=== PATIENT | female | born 1985 | race Caucasian/White ===

== ENCOUNTER → 2019-05-01 17:05 | Outpatient (CLI) | payer OTHER, SELFPAY ==
[2019-05-01 13:55] VITALS: BMI 29.7
[2019-05-01 19:46] LABS: Chlamydia Trachomatis by PCR Negative (Negative); Neisserai gonorrhoeae by PCR Negative (Negative); Probe Check PASS; Sample Adequacy Control PASS; Specimen Processing Control PASS
== END ==
PROVIDERS: Referring Provider Obstetrics & Gynecology; Visit Provider Obstetrics & Gynecology
DX: O09.90 Supervision of high risk pregnancy, unspecified, unspecified trimester (principal); Z3A.00 Weeks of gestation of pregnancy not specified
CPT/HCPCS: 87086; 87491; 87591

== ENCOUNTER 2019-06-17 08:02 | Emergency (ER) | payer OTHER, SELFPAY ==
[2019-05-29 16:44] VITALS: BMI 29.7
[2019-06-17 08:04] VITALS: BP 136/77; PULSE 80; RESP 16; TEMP 36.7; O2SAT 98; BMI 30.3
--- NOTE | 2019-06-17 08:16 | US_ITS ---
STUDY: SECOND AND THIRD TRIMESTER OBSTETRICAL ULTRASOUND REASON FOR EXAM: Female, 34 years old BLEEDING LMP: March 02, 2019. TECHNIQUE: Transabdominal and Transvaginal TECHNICAL QUALITY: Adequate. PRIOR ULTRASOUND: None. FINDINGS: There is a single intrauterine fetus. The fetus is in a cephalic presentation. There is demonstrated cardiac activity with a heart rate of 150 bpm. There is a normal amniotic fluid volume. The largest amniotic fluid pocket measures 3.2 cm x 3 cm. The amniotic fluid index (SHANNAN) is within normal limits. The placenta is anterior in location and is not low lying. The tip of the placenta is at 2 cm from the cervical os. There are Grade 0 placental changes. The cervix measures 3.5 in length. There is a 1.8 cm x 1.6 cm x 1.4 cm soft tissue density within the cervical os. This may represent a blood clot. The bilateral adnexal regions are normal. BIOMETRY: BPD: 3.18 cm: 16 weeks, 0 days HC: 11.64 cm: 15 weeks, 6 days AC: 9.59 cm: 15 weeks, 5 days FL: 1.85 cm: 15 weeks, 4 days CI: 84% FL/BPD: 58% FL/HC: FL/AC: 19% HC/AC: 1.21 age by current US: 15 weeks, 6 days. BOBBI by current US: December 03, 2019. Estimated weight: 130 grams, +/- 19 grams, 62 %. Age by LMP: 15 weeks, 2 days. BOBBI by LMP: December 07, 2019. US/OB Limited With Biometrics IMPRESSION: Single live intrauterine gestation with a mean gestational age of 15 weeks and 6 days. A 1.8 cm x 1.6 cm x 1.4 cm soft tissue density is seen within the cervical os. This may represent a blood clot. Electronically Signed: Brendan Kruse, at 10:03 EST , Service support ,
--- NOTE | 2019-06-17 08:24 | ED.DCSUM_ITS ---
- ER Visit Summary Date of Service: 06/17/19 Chief Complaint: Vaginal bleeding History of Present Illness: The patient is a 34 F who presents with vaginal bleeding that began today. Patient states she woke up and was having some cramping and bleeding. Patient states that the second time she went to the [facility] she does noted some brown discharge. Patient states she has some mild pain in her back currently. Patient denies any discharge or leakage of fluids. Patient denies any dysuria or hematuria. Patient is 5 para 3 with 1 spontaneous miscarriage. Patient is approximately 15 weeks . Physical Examination: Vital signs are stable. Patient is afebrile. Patient is in no acute distress. Oral mucosa is pink and moist. Neck is supple. Trachea is midline. There is no JVD. Heart was regular rate and rhythm. Lungs are clear and equal bilaterally. Abdomen is soft. Bowel sounds are normal. There is no tenderness. Cranial nerves II through XII are intact. There are no focal motor or sensory deficits noted. Test Results: Ultrasound shows a single live intrauterine fetus with a heart rate of 150. There is normal amniotic fluid. The placenta is in normal position. There is a small soft tissue density within the cervical office that may represent a blood clot. This was interpreted by the radiologist and reviewed by myself. CBC was within normal limits. Blood type was O+. Quantitative hCG was 13,126. Urinalysis shows occult blood of 250 with 25-50 red blood cells and 5-10 epithelial cells. Emergency Department Course and Treatment: Patient was instructed to drink plent y of fluids. Patient was instructed to avoid any tampons, douching, or sexual intercourse until she follows up with her BOND MANAGER. Patient was instructed to follow-up with her BOND MANAGER in 2 to 3 days. Patient understood and was agreeable with the plan. All questions were answered. Disposition: Discharge home Impression: Threatened miscarriage This note was generated with [email or web address] dictation software. It may contain incorrect words, spelling, and punctuation that were not noted in review of the chart prior to signing ED Disposition - Plan for ED Patient: Disposition: Home or Assisted Living Diagnosis: Threatened miscarriage Instructions: POSSIBLE MISCARRIAGE (Threatened ) Referrals: Elizabeth Simmons MD [STAFF PHYSICIAN] - 3-5 Days
[2019-06-17 08:42] LABS: Mucous, Urine 0 SEEN /hpf (<or=2+); White Blood Cells 0 SEEN /hpf (0-5)
[2019-06-17 08:44] LABS: Color, Urine Yellow (Yellow); Glucose, Dipstick Normal (Normal); Ketone-Dipstick Negative (Negative); Leukocyte Esterase-Dipstick Negative /ul (Negative); Nitrite-Dipstick Negative (Negative); Occult Blood-Urine 250 /ul (Negative); Protein-Dipstick 15 mg/dl (Negative); Urine Bilirubin Dipstick Negative (Negative); Urine Clarity Sl. Cloudy (Clear); Urine Urobilinogen 1 mg/dl (Normal)
[2019-06-17 08:47] LABS: Absolute Lymphocyte Count 1.59 X10^3/uL (0.83-4.51); Absolute Neutrophil Count 7.2 X10^3/uL (2.0-7.7); Basophil# 0.03 X10^3/uL; Basophil% 0.3 % (0-1); Eosinophil# 0.06 X10^3/uL; Eosinophils% 0.6 % (0-5); Hematocrit 39.3 % (37-47); Lymphocyte # 1.59 X10^3/ul (4.0); Mean Corp Hgb Conc 33.1 g/dL (32-36); Mean Corpuscular Volume 87.7 fL (81-99); Mean Platelet Vol. 11.1 fl (6.2-12.0); Monocyte% 5.3 % (0-10); NRBC Flagged by Analyzer 0 % (0-5); Neutrophil # 7.15 X10^3/uL (2.7-7.7); Neutrophil % 76.3 % (47-70); Platelet Count 242 K/mm3 (150-450); RBC Distribution Width CV 12.2 % (11.6-14.6); RBC Distribution Width SD 39.5 fl (35.1-43.9); Red Blood Count 4.48 M/mm3 (4.2-5.4); White Blood Count 9.4 K/mm3 (4.4-11.0)
[2019-06-17 08:53] LABS: Squamous Epithelial Cells - UA 5-10 SEEN /hpf (5-10)
[2019-06-17 08:54] LABS: Bacteria 1+ /hpf (None Seen); Red Blood Cells-Urine 25-50 SEEN /hpf (0-5)
[2019-06-17 09:14] LABS: hCG Titer Quant., Serum 13126 mIU/mL (1-3)
[2019-06-17 10:28] VITALS: BP 112/78; PULSE 80; RESP 16; O2SAT 99
== END 2019-06-17 10:28 | disposition home or self-care (01) ==
PROVIDERS: Emergency Provider Emergency Medicine
DX: O20.0 Threatened abortion (principal); O26.892 Other specified pregnancy related conditions, second trimester; R51 Headache; Z3A.15 15 weeks gestation of pregnancy
CPT/HCPCS: 76816; 76817; 81001; 84702; 85025; 86900; 86901; 99283; A4216

== ENCOUNTER → 2019-06-26 13:32 | Outpatient (CLI) | payer OTHER, SELFPAY ==
[2019-06-26 13:06] VITALS: BMI 30.3
[2019-06-26 13:52] LABS: Absolute Lymphocyte Count 1.69 X10^3/uL (0.83-4.51); Absolute Neutrophil Count 6.3 X10^3/uL (2.0-7.7); Basophil# 0.03 X10^3/uL; Basophil% 0.3 % (0-1); Eosinophil# 0.12 X10^3/uL; Eosinophils% 1.4 % (0-5); Hematocrit 38.5 % (37-47); Hemoglobin 12.9 g/dL (12.0-15.0); Lymphocyte # 1.69 X10^3/ul (4.0); Lymphocyte % 19.4 % (19-41); Mean Corp Hgb Conc 33.5 g/dL (32-36); Mean Corpuscular Hgb 29.1 pg (27.0-32.0); Mean Corpuscular Volume 86.9 fL (81-99); Mean Platelet Vol. 11.3 fl (6.2-12.0); Monocyte# 0.51 X10^3/uL; Monocyte% 5.9 % (0-10); NRBC Flagged by Analyzer 0 % (0-5); Neutrophil # 6.33 X10^3/uL (2.7-7.7); Neutrophil % 72.8 % (47-70); Platelet Count 256 K/mm3 (150-450); RBC Distribution Width CV 12.3 % (11.6-14.6); RBC Distribution Width SD 39.1 fl (35.1-43.9); Red Blood Count 4.43 M/mm3 (4.2-5.4); White Blood Count 8.7 K/mm3 (4.4-11.0)
[2019-06-27 10:31] LABS: HIV - WCH Non-Reactive (Nonreactive); Hepatitis B Surface Antigen Non-Reactive (Nonreactive); Hepatitis C Antibody Non-Reactive (Nonreactive); Rubella IgG 173.7 IU/mL
[2019-07-03 03:49] LABS: Rapid Plasmin Reagin (RPR) NONREACTIVE (NONREACTIVE)
== END ==
PROVIDERS: Referring Provider Obstetrics & Gynecology; Visit Provider Obstetrics & Gynecology
DX: O09.90 Supervision of high risk pregnancy, unspecified, unspecified trimester (principal); Z3A.00 Weeks of gestation of pregnancy not specified
CPT/HCPCS: 36415; 85025; 86592; 86703; 86762; 86803; 86850; 86900; 86901; 87340

== ENCOUNTER → 2019-09-11 13:39 | Outpatient (CLI) | payer OTHER, SELFPAY ==
[2019-08-19 09:17] VITALS: BMI 30.3
[2019-09-11 14:55] LABS: Absolute Lymphocyte Count 1.62 X10^3/uL (0.83-4.51); Absolute Neutrophil Count 7.2 X10^3/uL (2.0-7.7); Basophil# 0.02 X10^3/uL; Basophil% 0.2 % (0-1); Eosinophil# 0.07 X10^3/uL; Eosinophils% 0.7 % (0-5); Hematocrit 36.7 % (37-47); Hemoglobin 12.2 g/dL (12.0-15.0); Lymphocyte # 1.62 X10^3/ul (4.0); Lymphocyte % 16.8 % (19-41); Mean Corp Hgb Conc 33.2 g/dL (32-36); Mean Corpuscular Hgb 29.5 pg (27.0-32.0); Mean Corpuscular Volume 88.6 fL (81-99); Mean Platelet Vol. 10.6 fl (6.2-12.0); Monocyte# 0.69 X10^3/uL; Monocyte% 7.2 % (0-10); NRBC Flagged by Analyzer 0 % (0-5); Neutrophil # 7.19 X10^3/uL (2.7-7.7); Neutrophil % 74.8 % (47-70); Platelet Count 246 K/mm3 (150-450); RBC Distribution Width CV 12.9 % (11.6-14.6); RBC Distribution Width SD 41.6 fl (35.1-43.9); Red Blood Count 4.14 M/mm3 (4.2-5.4); White Blood Count 9.6 K/mm3 (4.4-11.0)
[2019-09-11 15:12] LABS: Glucose Challenge Gest 1H 50g 97 mg/dL (70-140)
== END ==
PROVIDERS: Nurse Practitioner Women's Health; Referring Provider Obstetrics & Gynecology; Visit Provider Obstetrics & Gynecology
DX: Z3A.27 27 weeks gestation of pregnancy (principal)
CPT/HCPCS: 82950; 85025

== ENCOUNTER → 2019-11-10 16:02 | Outpatient (CLI) | payer OTHER, SELFPAY ==
[2019-10-24 08:11] VITALS: BMI 32.4
[2019-11-07 10:58] VITALS: BMI 32.4
--- NOTE | 2019-11-10 16:03 | US_ITS ---
STUDY: SECOND AND THIRD TRIMESTER OBSTETRICAL ULTRASOUND REASON FOR EXAM: Female, 34 years old. Growth. LMP: March 02, 2019. TECHNIQUE: Transabdominal TECHNICAL QUALITY: Adequate. PRIOR ULTRASOUND: June 17, 2019. FINDINGS: There is a single intrauterine fetus. The fetus is in a cephalic presentation. There is demonstrated cardiac activity with a heart rate ranging between 120 150 bpm. There is a normal amniotic fluid volume. The largest amniotic fluid pocket measures 5.45 cm. The amniotic fluid index (SHANNAN) is 11.31 cm. The placenta is anterior in location and is not low lying. There are Grade 1 placental changes. The cervix measures 3.3 cm in length. The adnexal regions are not visualized. BIOMETRY: BPD: 8.47 cm: 34 weeks, 1 days HC: 33.41 cm: 38 weeks, 2 days AC: 31.91 cm: 35 weeks, 6 days FL: 6.94 cm: 35 weeks, 5 days CI: 82 FL/BPD: 82 FL/HC: FL/AC: 22 HC/AC: 1.05 age by current US: 36 weeks, 0 days. BOBBI by current US: December 08, 2019.. Estimated weight: 2780 grams, +/- 406 grams, 43 %. age by prior US: 36 weeks, 5 days. BOBBI by prior US: December 03, 2019.. Age by LMP: 36 weeks, 1 days. BOBBI by LMP: December 07, 2019. US/OB Limited With Biometrics IMPRESSION: 1. Live single intrauterine of 36 weeks, 0 days. BOBBI is December 08, 2019. There is adequate interval growth since prior study. 2. EFW of 2780 g. 3. SHANNAN of 11.31 cm. 4. Closed cervix is 3.3 cm. 5. Anterior grade 1 placenta. 6. Vertex presentation. Electronically Signed: Jose Luis De La Cruz DO at 17:02 EDT Tel [phone], Service support ,
== END ==
PROVIDERS: Referring Provider Obstetrics & Gynecology; Visit Provider Obstetrics & Gynecology
DX: O09.90 Supervision of high risk pregnancy, unspecified, unspecified trimester (principal); O34.40 Maternal care for other abnormalities of cervix, unspecified trimester; Z3A.00 Weeks of gestation of pregnancy not specified
CPT/HCPCS: 76816

== ENCOUNTER → 2019-11-14 17:07 | Outpatient (CLI) | payer OTHER, SELFPAY ==
[2019-11-14 16:28] VITALS: BMI 32.4
== END ==
PROVIDERS: Referring Provider Obstetrics & Gynecology; Visit Provider Obstetrics & Gynecology
DX: O09.90 Supervision of high risk pregnancy, unspecified, unspecified trimester (principal); Z3A.00 Weeks of gestation of pregnancy not specified
CPT/HCPCS: 87081

== ENCOUNTER → 2019-12-05 17:46 | Outpatient (CLI) | payer OTHER, SELFPAY ==
[2019-12-05 13:30] VITALS: BMI 32.4
== END ==
PROVIDERS: Referring Provider Obstetrics & Gynecology; Visit Provider Obstetrics & Gynecology
DX: Z11.59 Encounter for screening for other viral diseases (principal)
CPT/HCPCS: 87635; G2023; U0003

== ENCOUNTER 2019-12-06 10:06 | Inpatient (IN) | payer OTHER, SELFPAY ==
[2019-12-05 13:30] VITALS: BMI 32.4
[2019-12-06] VITALS (40 sets, daily range): BP systolic 70–169; BP diastolic 40–88; PULSE 59–104; RESP 18; TEMP 35.9–36.8; O2SAT 97–100; BMI 34.2
[2019-12-06 09:47] LABS: ROM Internal Control Test YES-OK TO RESULT pt. (Internal QC)
[2019-12-06 09:49] LABS: ROM Patient Test POSITIVE (Negative)
[2019-12-06] MEDS: Lactated Ringers 500 ML 999 ML IV ×2 (10:14→11:54)
[2019-12-06] MEDS: fentaNYL 100 MCG/2 ML Ampul IV (10:28)
[2019-12-06 10:29] LABS: Absolute Neutrophil Count 14.4 X10^3/uL (2.0-7.7); Basophil# 0.04 X10^3/uL; Basophil% 0.2 % (0-1); Eosinophil# 0.02 X10^3/uL; Eosinophils% 0.1 % (0-5); Hematocrit 39.2 % (37-47); Hemoglobin 13.1 g/dL (12.0-15.0); Lymphocyte % 9.4 % (19-41); Mean Corp Hgb Conc 33.4 g/dL (32-36); Mean Corpuscular Hgb 28.8 pg (27.0-32.0); Mean Corpuscular Volume 86.2 fL (81-99); Mean Platelet Vol. 11.5 fl (6.2-12.0); Monocyte# 0.86 X10^3/uL; NRBC Flagged by Analyzer 0 % (0-5); Neutrophil # 14.41 X10^3/uL (2.7-7.7); Neutrophil % 84.7 % (47-70); Platelet Count 243 K/mm3 (150-450); RBC Distribution Width CV 13.5 % (11.6-14.6); RBC Distribution Width SD 41.2 fl (35.1-43.9); Red Blood Count 4.55 M/mm3 (4.2-5.4)
[2019-12-06] MEDS: Lactated Ringers 1,000 ML 200 ML IV (10:45)
[2019-12-06] MEDS: fentaNYL-bupivacaine (epidural) 100 ML BAG EPIDURAL (11:10)
[2019-12-06] MEDS: Ondansetron 4 MG/2 ML Vial IV (13:31)
[2019-12-06] MEDS: Oxytocin 30 units/NS 500 ml 30 UNITS/500 ML IV.SOLN IV (14:45)
[2019-12-06] MEDS: Mag Hydrox/Al Hydrox/Simeth 30 ML UDC PO (14:46)
--- NOTE | 2019-12-06 14:50 | HP.PCM_ITS ---
- Problem List (1) SROM (spontaneous rupture of membranes) Status: Acute (2) AMA (advanced maternal age) multigravida 35+ Status: Acute Qualifiers: Comment: declines genetic screening. nl growth 36 week us. IOL 40 weeks (3) Hx LEEP (loop electrosurgical excision procedure), cervix, Status: Acute Comment: anatomy with cervical length nl (4) Status: Acute Qualifiers: Comment: Declines genetic and carrier, ntd testing. anatomy reveiwed. (5) complicated by prior cervical conization, antepartum Status: Acute Comment: nl cervical length (6) Supervision of high risk , antepartum Status: Acute Comment: PRR BOBBI 12/07/2019 [facility], Cesar Salas Spouse- Mika(this is his first child) History and Physical Date of Admission: 12/06/19 Intake Vital Signs 12/05/19 Height 5 ft 6 in 12/05/19 Weight: 213 lb 6 oz 12/05/19 BMI 34.4 12/05/19 BP 128/82 H Intake Visit Reasons: 40WK OB Pipelines Manager Required: No Is patient in pain?: No Allergies No Known Allergies Allergy (Verified 12/05/19 13:30) Medications vitamin#30 30 mg iron-10 mg iron-folic acid 1 mg-omg3 capsule cap PO 07/22/19 [History Confirmed 12/05/19] Last Menstral Period: 03/02/19 Zika: Zika virus screening: Negative : No PFSH PFSH Medical History Kidney stones (Acute) Surgical History complicated by prior cervical conization, antepartum (Acute) Hx of tonsillectomy (Acute) H/O LEEP (Resolved) Family History Father Hypertension Mother CVA (cerebral vascular accident) Grandmother Breast cancer Aunt Breast cancer Grandfather Heart disease Myocardial infarction Social History (Updated 12/05/19 @ 14:[address] 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 Date Name GA/Weeks Outcome Route Bth Weight Gen Labor Lgth Anesthesia Del Locatn Provider FOB 10/11/07 Damon 40 live - full term 7lbs 14oz Male 1 4 hours other [facility] 01/18/11 Camdon 40 live - full term 7lbs 10 oz Male 1 2 hours other [facility] 12/04/11 Cesar 40 live - full term 7lbs 11oz Male 2 2hours other [facility] Delivery Date: 10/11/07 On 05/01/19 @ 14:10 Johanna Hodge no complications Delivery Date: 01/18/11 On 05/01/19 @ 14:10 Johanna Hodge no complications Delivery Date: 12/04/11 On 05/01/19 @ 14:12 Johanna Hodge no complications HPI 40WK OB : Details: MICHELLE MCELROY is a 34 year old 5P3 who presents at 39 weeks and 6 days in active labor with clear rupture of membranes. Had regular contractions increasing in severity and is wanting her epidural. OB Visit BOBBI Calculator Estimated Delivery Date Method Current WG Current Estimate 12/07/19 LMP (Certain) 39w 5d Expected Delivery Route/Plan Labor Preferences- labor support person: Mika pain management options preferred: minimal intervention cut cord/dad catch: cord : yes PP control planned: [] discussed possible routes of delivery and associated risks: [] special requests: [] Specific Issue/Plans flu vaccine: declined tdap vaccine: declines rhogam: NA LARC form signed: yes movement and labor precautions reviewed. Problem list reviewed and updated with the most current plan of care details and appropriate orders placed. Relevant counseling for the gestational age provided. Continue routine care and follow up unless otherwise noted in visit notes/problem list details Initial Weight: 184 lb Date EGA Weight BP Urine Prot Glucose FHR FuHt Pres Dilation Effaced St Visit Note 05/29/19 12w 4d 188 lb (+4 lb) 120/68 Negative Negative 165 SM- declines genetic testing. no vb cramping. 06/26/19 16w 4d 191 lb (+7 lb) 124/80 Negative Negative 145 SM- no vb cramping 07/22/19 20w 2d 198 lb (+14 lb) 128/78 Negative Negative 140 SM- no vb cramping. 08/19/19 24w 2d 197 lb (+13 lb) 108/64 Negative Negative 140 Sm- no vb lof good fm 09/11/19 27w 4d 201 lb (+17 lb) 130/84 Negative Negative 161 27 MH-No VB, LOF. Good FM. 28 wk labs. Declines tdap 10/09/19 31w 4d 203 lb 4 oz (+19 lb 4 oz) 132/80 Trace Negative 140 32 SM- no vb lof good fm no result 10/24/19 33w 5d 205 lb 8 oz (+21 lb 8 oz) 120/80 Negative Negative 140 34 sm- NO VB LOF GOOD FM NO REGULAR CTX 11/07/19 35w 5d 209 lb (+25 lb) 122/80 Negative Negative 140 35 Cephalic SM- no vb lof good fm no regular ctx 11/14/19 36w 5d 210 lb (+26 lb) 116/60 140 37 Cephalic 0.5 Sm- no vb lof good fm no regular ctx. 11/20/19 37w 4d 210 lb 8 oz (+26 lb 8 oz) 112/80 Negative Negative 145 38 Cephalic 1 SM- no vb lof good fm no regular ctx 11/26/19 38w 3d 211 lb 6 oz (+27 lb 6 oz) 130/80 Negative Negative 150 38 Cephalic 1 SM- no vb lof good fm no regular ctx 12/05/19 39w 5d 213 lb 6 oz (+29 lb 6 oz) 128/82 Negative Negative 150 40 Cephalic 1 60 -2 SM- no vb lof good fm n o regular ctx. discussed IOL secondary to AMA. plan IOL sunday ACOG First Trimester First Trimester: Desire for , Alcohol, Tobacco Cessation, Illi cit/Recreational Drug/Substance Use, Intimate Partner Violence, Barriers to care, Unstable Housing, Communication Barriers, Environmental/Work Hazards, Anticipated Course of Care, Toxoplasmosis Precations, Use of Any medications, Sexual activity, Exercise, Dental Care, Sauna/Hot tub use, Seat Belt use, Childbirth classes/Hospital facilities, , Travel, Indications for US and Screening for Aneuploidy Second Trimester Second Trimester: Signs and Symptoms of Labor, Selecting a care provider, Reproductive Life Planning, Care Planning, Tobacco Cessation, Depression/Anxiety and Intimate Partner Violence Third Trimester Third Trimester: Pain Management Plans, Labor support person(s), Immediate Larc, Movement Monitoring and Feeding Yes ; discussed Trial of Labor after Counseling or discussed Circumcision preference Diagnostics Diagnostics Diagnostics Blood Type O POSITIVE 06/26/19 Antibody Screen NEGATIVE 06/26/19 Glucose 1 Hr 50 gm 97 mg/dL (70-140) 09/11/19 HIV 1&2 Antibody Non-Reactive (Nonreactive) 06/26/19 Rubella IgG Antibody 173.7 IU/mL 06/26/19 Hgb 12.2 g/dL (12.0-15.0) 09/11/19 Hct 36.7 % (37-47) L 09/11/19 RPR NONREACTIVE (NONREACTIVE) 06/26/19 Details: HIV: Urine Culture: Sequential Screen: NIPT Screen: ROS Const Reports system reviewed and no additional complaints, except as docu Card Reports system reviewed and no additional complaints, except as docu Resp Reports system reviewed and no additional complaints, except as docu GI Reports system reviewed and no additional complaints, except as docu, Reports nausea Reports system reviewed and no additional complaints, except as docu Musc Reports system reviewed and no additional complaints, except as docu Exam Const General: cooperative, healthy appearing, comfortable, anxious [facility] Head: normal to inspection Nose: external nose normal Face and sinus: normal facial exam Neck Neck: normal visual inspection, full ROM, no lymphadenopathy Thyroid: thyroid normal Chest Chest palpation & inspection: normal inspection of the chest Resp Effort & Inspection: normal respiratory effort GI Inspection: normal to inspection Palpation: soft, other (gravid uterus) Other: vertex and appropriate size for gestational age Other: Cervical Exam: Extrem General: pedal edema Results POC Urinalysis 2 Dip (Clinic) Office Urine Glucose Negative Last Edit by Shannan Borjas on 12/05/19 13:35 Office Urine Protein Negative Last Edit by Shannan Borjas on 12/05/19 13:35 Assessment & Plan Problems 1. Hx LEEP (loop electrosurgical excision procedure), cervix, O34.40; Z98.890 anatomy with cervical length nl 2. Supervision of high risk , antepartum O09.90 PRR BOBBI 12/07/2019 [facility], Cesar Salas Spouse- Mika(this is his first child) 3. 39 weeks gestation of Z3A.39 Declines genetic and carrier, ntd testing. anatomy reveiwed. 4. complicated by prior cervical conization, antepartum O34.40 nl cervical length 5. Multigravida of advanced maternal age in first trimester O09.521 declines genetic screening. nl growth 36 week us. IOL 40 weeks 34-year-old at 39 weeks 6 days presents in active labor Patient presents IAL, plan expectant management for , pir PRN. Pain management: plans epidural. GBS none. Management of any complications: dong I have reviewed the [facility] and made any clinically relevant updates.
[2019-12-06] MEDS: Oxytocin 30 units/NS 500 ml 30 UNITS/500 ML IV.SOLN 334 UNITS IV (15:46)
--- NOTE | 2019-12-06 15:55 | OP.PCM_ITS ---
Problem List (1) SROM (spontaneous rupture of membranes) Status: Acute (2) AMA (advanced maternal age) multigravida 35+ Status: Acute Qualifiers: Comment: declines genetic screening. nl growth 36 week us. IOL 40 weeks (3) Hx LEEP (loop electrosurgical excision procedure), cervix, Status: Acute Comment: anatomy with cervical length nl (4) Status: Acute Qualifiers: Comment: Declines genetic and carrier, ntd testing. anatomy reveiwed. (5) complicated by prior cervical conization, antepartum Status: Acute Comment: nl cervical length (6) Supervision of high risk , antepartum Status: Acute Comment: PRR BOBBI 12/07/2019 [facility], Maritza, Cesar Spouse- Mika(this is his first child) Vaginal Delivery Maternal Presentation: Active Labor ial 39w6d Amniotic Membrane Rupture Type: Spontaneous at home Amniotic Fluid Description: Clear Final BOBBI: 12/07/19 Gestational age: 40 Weeks and 1 Days Date of Procedure: 12/06/19 Pre-Operative Diagnosis: ial Post-Operative Diagnosis: same Surgery/ Procedure Performed: Spontaneous Vaginal Delivery Type of Anesthesia: Epidural Description of Procedure: Patient began pushing and delivered the head in the FREDDY presentation. The head was delivered atraumatically and a loose nuchal cord ?1 was identified and easily reduced over the infant's head. The anterior and posterior shoulders delivered without complication followed by the rest of the infant and the infant was placed on the maternal abdomen. Delayed cord clamping was employed for approximately 60 seconds. Cord was clamped and cut and gentle traction was applied to the cord and the placenta delivered spontaneously immediately f ollowing it was noted to be intact with three-vessel cord. The perineum and vagina were inspected and noted to have a small first degree laceration repaired in the usual fashion with 3-0 rapide. EBL was 100 cc. Patient and infant tolerated delivery well. Presentation: FREDDY Placental Delivery Description: Spontaneous Placenta Disposition: [facility] Cord Vessel Description: 3 Vessels Cord Entanglement: Around neck x 1, loose Estimated Blood Loss: 100 Infant A gender: Female Episiotomy Description: None Laceration: Perineal Extension/lac, 1st degree Medications given after delivery: IV Pitocin Complications: None Multi Select Codes - Urinary/Genital Urinary/Genital CPT Codes: 29982 Vaginal Delivery [facility]
[2019-12-06] MEDS: Naproxen 250 MG Tablet 500 MG PO (21:23)
[2019-12-07] VITALS (9 sets, daily range): BP systolic 108–132; BP diastolic 64–84; PULSE 71–85; RESP 14–18; TEMP 36.3–37.7
[2019-12-07] MEDS: Acetaminophen 500 MG Tablet 1000 MG PO (01:14)
[2019-12-07] MEDS: Naproxen 250 MG Tablet 500 MG PO (07:29)
--- NOTE | 2019-12-07 12:49 | PCM.PN.OB ---
Patient Problems: Active and Suspected Problems (Last Reviewed 12/05/19 @ 13:29 by Shannan Borjas) SROM (spontaneous rupture of membranes) (Acute) Subjective: doing well no complaints pain controlled no CP SOB N V ambulating well tolerating po lochia moderate, going well - Physical Exam Vitals/I&O's: Vital Signs Temp Pulse Resp BP Pulse Ox 97.4 F L 71 14 110/69 98 12/07/19 08:00 12/07/19 12:33 12/07/19 08:00 12/07/19 12:33 12/06/19 15:13 Oxygen Delivery Method Room Air Weight: 212 lb Body Mass Index (BMI) 34.2 Intake and Output for Last 24 Hours 12/05/19 12/06/19 12/07/19 23:59 23:59 23:59 Intake Total 2502.03 / 2502.03 Output Total 1200 / 1200 Balance 1302.03 / 1302.03 General: Alert, Oriented x3 Current Medications Acetaminophen (Tylenol) 1,000 mg PO Q8H PRN PRN PRN Reason: Pain Score 1-310 Last Admin: 12/07/19 01:14 Dose: 1,000 mg Documented by: Bisacodyl (Dulcolax) 10 mg RECTAL UD PRN PRN Reason: If no BM Dibucaine (Dibucaine) 1 applic TOPICAL TID PRN PRN; Protocol PRN Reason: Discomfort Hydrocortisone (Hytone) 1 applic TOPICAL TID PRN PRN; Protocol PRN Reason: Discomfort Methylergonovine Maleate (Methergine) 0.2 mg IM X1 PRN PRN Reason: Excess bleeding/uterine atony Naproxen (Naprosyn) 500 mg PO Q8H PRN PRN PRN Reason: Pain Score 1-3/10 Last Admin: 12/07/19 07:29 Dose: 500 mg Documented by: Ondansetron HCl (Zofran) 4 mg IV Q4H PRN PRN PRN Reason: Nausea Oxycodone HCl (Oxyir) 5 - 10 mg PO Q4H PRN PRN PRN Reason: Pain Score 4-10/10 Senna/Docusate Sodium (Senokot-S, Annette-Colace) 1 - 2 tablet PO DAILY PRN PRN PRN Reason: Constipation Simethicone (Mylicon) 80 mg PO PCHS PRN PRN Reason: Indigestion/Stomach pain Sodium Chloride () 5 - 15 ml IV UD PRN PRN Reason: SALINE FLUSH Medical Necessity - Tobacco Use Smoking Status: Never smoker Assessment/Plan All Active Problems (Last Reviewed 12/05/19 @ 13:29 by Shannan Borjas) SROM (spontaneous rupture of membranes) (Acute) Hx LEEP (loop electrosurgical excision procedure), cervix, (Acute) AMA (advanced maternal age) multigravida 35+ (Acute) Supervision of high risk , antepartum (Acute) (Acute) complicated by prior cervical conization, antepartum (Acute) H/O LEEP (Resolved) s/p PPD # 1 1. routine post delivery care 2. breast feeding- support given 3. rh positive 4. rubella immune
--- NOTE | 2019-12-07 12:50 | DCINST_ITS ---
Discharge Diet: No Restrictions Discharge Activity: Return to Normal Activity, May not drive while taking narcotic pain medications., May Shower May resume sexual activity in: 4-6 weeks Call your doctor if your incision/area has: Continuous Slow Oozing, Sudden Increased Bleeding, Increased Pain/ Swelling, Increased Redness, Foul Smelling Discharge Additional Instructions: If you experience any of the following, contact your healthcare provider. * Bleeding that soaks a pad every hour for 2 hours * Fever 100.4 or higher * Unrelieved incision or abdominal pain * Swelling, redness, discharge or bleeding from your incision or episiotomy site * Your incision begins to separate * Problems urinating (including inability to urinate or burning while urinating). * Visual changes * Severe headache * Flu-like symptoms * Pain or redness in one of both of your breasts * Pain, warmth, tenderness or swelling in your legs, especially the calf area * Frequent nausea and vomiting * Symptoms of depression or anxiety If you experience any of the following, call 911 or go to the nearest Emergency Room. * Chest pain * Problems breathing * Seizure activity * Partial or complete paralysis of a body part, slurred speech, weakness or drooping of the face, or a sudden inability to walk or hold your balance Allergies/Adverse Reactions: Allergies No Known Allergies Allergy (Verified 12/06/19 09:25) Medications to take at Discharge vitamin#30 30 mg iron-10 mg iron-folic acid 1 mg-omg3 capsule cap PO 07/22/19 Please Follow Up With: Elizabeth Simmons MD - [phone] When: Call to make an appointment with your doctor in 6 weeks. If you had elevated Blood pressure or 4th degree laceration you will need to be seen in 2 weeks. Primary Care Physician: Care Physician,No Primary [Primary Care Provider] - Test Results: Test results from this visit will be discussed in further detail at your follow- up appointment, if applicable.
--- NOTE | 2019-12-07 12:50 | PCM.DCVAG ---
Discharge Diet: No Restrictions Discharge Activity: Return to Normal Activity, May not drive while taking narcotic pain medications., May Shower May resume sexual activity in: 4-6 weeks Call your doctor if your incision/area has: Continuous Slow Oozing, Sudden Increased Bleeding, Increased Pain/ Swelling, Increased Redness, Foul Smelling Discharge Additional Instructions: If you experience any of the following, contact your healthcare provider. Bleeding that soaks a pad every hour for 2 hours Fever 100.4 or higher Unrelieved incision or abdominal pain Swelling, redness, discharge or bleeding from your incision or episiotomy site Your incision begins to separate Problems urinating (including inability to urinate or burning while urinating). Visual changes Severe headache Flu-like symptoms Pain or redness in one of both of your breasts Pain, warmth, tenderness or swelling in your legs, especially the calf area Frequent nausea and vomiting Symptoms of depression or anxiety If you experience any of the following, call 911 or go to the nearest Emergency Room. Chest pain Problems breathing Seizure activity Partial or complete paralysis of a body part, slurred speech, weakness or drooping of the face, or a sudden inability to walk or hold your balance Allergies/Adverse Reactions: Allergies No Known Allergies Allergy (Verified 12/06/19 09:25) Medications to take at Discharge vitamin#30 30 mg iron-10 mg iron-folic acid 1 mg-omg3 capsule cap PO 07/22/19 Please Follow Up With: Elizabeth Simmons MD - [phone] When: Call to make an appointment with your doctor in 6 weeks. If you had elevated Blood pressure or 4th degree laceration you will need to be seen in 2 weeks. Primary Care Physician: Care Physician,No Primary [Primary Care Provider] - Test Results: Test results from this visit will be discussed in further detail at your follow-up appointment, if applicable.
[2019-12-08 07:44] VITALS: PULSE 106; O2SAT 99
== END 2019-12-07 17:55 | disposition home or self-care (01) | DRG 807 ==
LOC: WP 10:07
PROVIDERS: Admitting Provider Obstetrics & Gynecology; Referring Provider Obstetrics & Gynecology; Visit Provider Obstetrics & Gynecology
DX: O69.81X0 Labor and delivery complicated by cord around neck, without compression, not applicable or unspecified (principal); Z37.0 Single live birth; Z3A.40 40 weeks gestation of pregnancy; O70.0 First degree perineal laceration during delivery
CPT/HCPCS: 59025; 59050; 84112; 85025; 86850; 86900; 86901; 99218; J7120; G0378; J2405

== ENCOUNTER → 2020-01-28 16:22 | Outpatient (CLI) | payer OTHER, SELFPAY ==
[2020-01-28 15:45] VITALS: BMI 34.2
[2020-02-05 22:02] LABS: HPV APTIMA, High Risk Negative (Negative)
== END ==
PROVIDERS: Referring Provider Nurse Practitioner Women's Health; Visit Provider Nurse Practitioner Women's Health
DX: Z12.4 Encounter for screening for malignant neoplasm of cervix (principal)
CPT/HCPCS: 87624; 88175; G0145